=== PATIENT | male | born 1945 | race Caucasian/White ===

== ENCOUNTER 2018-04-17 13:30 | Emergency (ER) | payer MEDICARE ==
[~2018-04-17] VITALS: Ht 188 cm; Wt 77.3 kg
[2018-04-17 13:33] VITALS: BP 132/80; Ht 188 cm; Wt 77.3 kg
== END 2018-04-17 18:15 | disposition home or self-care (01) ==
LOC: D.ER 13:30
DX: R55 Syncope and collapse (principal); E86.0 Dehydration; Z86.73 Personal history of transient ischemic attack (TIA), and cerebral infarction without residual deficits; G30.9 Alzheimer's disease, unspecified; F02.80 Dementia in other diseases classified elsewhere, unspecified severity, without behavioral disturbance, psychotic disturbance, mood disturbance, and anxiety

== ENCOUNTER 2019-05-27 13:52 | Emergency (ER) | payer MEDICARE, OTHER ==
[~2019-05-27] VITALS: Ht 188 cm; Wt 70.5 kg
[2019-05-27 13:59] VITALS: Ht 188 cm; Wt 70.5 kg
[2019-05-27 14:20] LABS: BASOPHILS 0.3 % (0-2); EOSINOPHILS 2.4 % (0-7); HEMATOCRIT 43.6 % (42.0-54.0); HEMOGLOBIN 14.2 g/dL (13.5-17.5); IMMATURE GRANULOCYTES 0.4 % (0-5); LYMPHOCYTES 10.2 % (15-50); MCH 26.8 pg (26.0-34.0); MCHC 32.6 g/dL (31.0-37.0); MCV 82.3 fL (80.0-100.0); MEAN PLATELET VOLUME 9.2 fL (7.4-10.4); MONOCYTES 9.9 % (2-11); NEUTROPHILS 76.8 % (40-80); PLATELET COUNT 197 10x3/uL (130-400); RDW 15.4 % (11.5-14.5); WBC 7.1 10x3/uL (4.8-10.8)
[2019-05-27 14:39] LABS: ANION GAP 9.8 mmol/L (8-16); CALCIUM 8.4 mg/dL (8.5-10.1); CARBON DIOXIDE 28.3 mmol/L (21.0-32.0); CREATININE - SERUM 1.3 mg/dL (0.6-1.3); POTASSIUM - SERUM 4.1 mmol/L (3.5-5.1)
[2019-05-27 14:45] LABS: BILIRUBIN - TOTAL 0.69 mg/dL (0.2-1.3); PROTEIN - SERUM 7.4 g/dL (6.4-8.2)
[2019-05-27 15:51] VITALS: BP 132/76
== END 2019-05-27 15:53 | disposition home or self-care (01) ==
LOC: D.ER 13:52
PROVIDERS: Emergency Medicine
DX: R55 Syncope and collapse (principal); I71.9 Aortic aneurysm of unspecified site, without rupture; F17.210 Nicotine dependence, cigarettes, uncomplicated; Z86.73 Personal history of transient ischemic attack (TIA), and cerebral infarction without residual deficits

== ENCOUNTER 2020-12-07 08:04 | Inpatient (IN) | payer MEDICARE, OTHER ==
[~2020-12-07] VITALS: Ht 188 cm; Wt 56.1 kg
[2020-12-07 08:47] LABS: BASOPHILS 0.6 % (0-2); EOSINOPHILS 0.9 % (0-7); HEMATOCRIT 39.5 % (42.0-54.0); HEMOGLOBIN 13.1 g/dL (13.5-17.5); MCH 27.3 pg (26.0-34.0); MCHC 33.1 g/dL (31.0-37.0); MCV 82.3 fL (80.0-100.0); MEAN PLATELET VOLUME 6.9 fL (7.4-10.4); MONOCYTES 14.7 % (2-11); NEUTROPHILS 75.8 % (40-80); PLATELET COUNT 214 10x3/uL (130-400); RDW 14.3 % (11.5-14.5); WBC 11.9 10x3/uL (4.8-10.8)
[2020-12-07 09:11] LABS: ALBUMIN 3.2 g/dL (3.4-5.0); ALKALINE PHOSPHATASE 72 U/L (30-120); ALT (SGPT) 11 U/L (10-68); BILIRUBIN - TOTAL 1.34 mg/dL (0.2-1.3); CALC OSMOLALITY 273 mosm/kg (275-300); CALCIUM 8.3 mg/dL (8.5-10.1); CARBON DIOXIDE 22.8 mmol/L (21.0-32.0); CHLORIDE - SERUM 101 mmol/L (98-107); CREATININE - SERUM 1.2 mg/dL (0.6-1.3); GLUCOSE 114 mg/dL (74-106); LIPASE 68 U/L (73-393); POTASSIUM - SERUM 4.2 mmol/L (3.5-5.1); PRO BNP 187 pg/mL (0-125); PROTEIN - SERUM 6.7 g/dL (6.4-8.2); SODIUM 135 mmol/L (136-145); THYROID STIMULATING HORMONE 0.39 uIU/mL (0.36-3.74); TROPONIN-I < 0.017 ng/mL (0.000-0.060); UREA NITROGEN 20 mg/dL (7-18); eGFR NON AFRICAN AMERICAN 63 mL/min (90-120)
[2020-12-07 09:52] LABS: UDS - AMPHET NEGATIVE QUAL (NEGATIVE); UDS - BARB NEGATIVE QUAL (NEGATIVE); UDS - BENZO NEGATIVE QUAL (NEGATIVE); UDS - COCAINE NEGATIVE QUAL (NEGATIVE); UDS - OPIATE NEGATIVE QUAL (NEGATIVE); UDS - PCP NEGATIVE QUAL (NEGATIVE); UDS - THC NEGATIVE QUAL (NEGATIVE)
[2020-12-07 09:59] LABS: SARS-CoV-2 ANTIGEN NEGATIVE- SARS-COV-2 (NEGATIVE)
[2020-12-07 10:12] LABS: BILIRUBIN NEGATIVE (NEGATIVE); KETONE NEGATIVE (NEGATIVE); NITRITE NEGATIVE (NEGATIVE); UROBILINOGEN NORMAL mg/dL (< 2)
[2020-12-07 10:13] LABS: BACTERIA FEW HPF (NONE SEEN); SQUAMOUS EPITHELIAL OCC HPF (0-4); WHITE CELLS - URINE OCC HPF (0-1)
--- NOTE | 2020-12-07 11:45 | NUR ---
PATIENT ADMITTED TO [facility] FOR AMS. PATIENT IS REFUSING CARE AND IS AGGRESSIVE WITH PER REPORT. PATIENT CHASED AROUND THE HOME WITH A LAMP. PATIENT WAS BROUGHT TO [facility] FOR TREATMENT. PATIENT'S PRIMARY CARE PHYSICIAN IS LATRICE PIERSON. PATIENT'S PHARMACY IS [facility]. PATIENT IS ALLERGIC TO PENICILLIN. PATIENT TAKES NO MEDICATIONS AT THIS TIME PER REPORT. PATIENT IS A CURRENT SMOKER. PATIENT IS ON A REGULAR DIET. PATIENT IS AMBULATORY HOWEVER, UNSTEADY AT THIS TIME. PATIENT'S REPORTS "PATIENT DID FALL ONTO THE FLOOR AT HOME THIS MORNING, PATIENT BECOME AGGRESSIVE WITH WITH ASSISTANCE. PT HAS DENTURES BUT REFUSES TO WEAR THEM AT HOME. PT DID NOT BRING DENTURES TO HOSPITAL AT THIS TIME. PATIENT HAD A CATARACT SURGERY AROUND 18 YEARS AGO AND A STROKE AROUND 5 YEARS AGO PER 'S REPORT. PATIENT WAS DIAGNOSED WITH DEMENTIA 10 YEARS AGO PER REPORT. VERBAL CONSENT RECEIVED FROM DAMION SENA. CONTACT NUMBER AND CELL NUMBER IS CELL. PATIENT HAD A NEGATIVE COVID ANTIGEN SWAB IN ER. EKG COMPLETED IN ER AND PLACED IN PATIENT'S CHART. UA COLLECTED AND CULTURE ORDERED.
[2020-12-07 18:44] VITALS: BP 106/60
--- NOTE | 2020-12-07 19:15 | NUR ---
REPORTED CALL TO CECIL EDGAR. PT TRANSFERRED TO ICU RM [id number]. NO S/SX OF DISTRESS NOTED.
[2020-12-07 20:00] VITALS: BP 125/65
--- NOTE | 2020-12-07 23:50 | NUR ---
B)RECEIVED PATIENT SITTING OUTSIDE THE NURSE'S STATION. ORIENTED X0. COULD NOT TELL NURSE HIS NAME. DOES NOT FOLLOW VERBAL INSTRUCTION. WANDERS AROUND UNIT. PT SWUNG AT T WHEN ATTEMPTING TO REDIRECT TO HIS ROOM. WLAKS AROUND HOLDING HIMSELF AND WHEN ASKS IF HE NEEDS TO PEE? PATIENT RELATES "YES" HOWEVER WHEN HE GETS TO THE BATHROOM HE LOOKS AT THE TOILET AND TURNS AROUND. WHEN ASKED IF HE NEEDS TO USE TH BATHROOM HE RELATES "NO." I)REORIENT NEEDED. REDIRECT FOR AGGRESSIVE GESTURES. R)POOR REORIENTATION AND REDIRECTION DUE TO IMPAIRED ABILITY TO COMPREHEND PROCESS AND REATIN INFORMATION. P)CONTINUE POC AND PROVIDE SAFE ENVIRONMENT.
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
[2020-12-08 06:07] LABS: BASOPHILS 0.4 % (0-2); EOSINOPHILS 1.3 % (0-7); HEMATOCRIT 38.1 % (42.0-54.0); HEMOGLOBIN 12.7 g/dL (13.5-17.5); LYMPHOCYTES 7.8 % (15-50); MCH 27.4 pg (26.0-34.0); MCHC 33.4 g/dL (31.0-37.0); MCV 82.1 fL (80.0-100.0); MEAN PLATELET VOLUME 7.9 fL (7.4-10.4); MONOCYTES 14.2 % (2-11); NEUTROPHILS 76.3 % (40-80); PLATELET COUNT 209 10x3/uL (130-400); RBC 4.64 10x6/uL (4.20-6.10); RDW 14.2 % (11.5-14.5)
[2020-12-08 06:54] LABS: ANION GAP 12.2 mmol/L (8-16); BILIRUBIN - TOTAL 1.28 mg/dL (0.2-1.3); CALCIUM 8.8 mg/dL (8.5-10.1); CARBON DIOXIDE 26.6 mmol/L (21.0-32.0); CHOL - HDL RATIO 2.6 ratio (2.3-4.9); CREATININE - SERUM 1.4 mg/dL (0.6-1.3); LDL-HDL RATIO 1.4 ratio (1.5-3.5); POTASSIUM - SERUM 3.8 mmol/L (3.5-5.1); PROTEIN - SERUM 6.9 g/dL (6.4-8.2); THYROID STIMULATING HORMONE 0.41 uIU/mL (0.36-3.74)
[2020-12-08 08:19] VITALS: BP 105/53
--- NOTE | 2020-12-08 11:11 | NUR ---
Patients spouse calls requesting information, passcode verifided. This nurse provided requested information at her request. She thanked this nurse and stated thank you to staff for caring for him.
[2020-12-08 15:46] VITALS: Ht 188 cm; Wt 56.1 kg
--- NOTE | 2020-12-08 17:18 | NUR ---
pt sitting on couch at this time with eyes closed. calm and cooperative at this time. pt does not respond to pt name. confused. ambulates. compliant with meds, vitals and assessments. Incontient at times. pt will urinate in any place. nicotine patch in place. pt requires slow appoprach. no combative behavior noted. pt has frequency. requires constant redirection. will cont plan of care.
[2020-12-08] MEDS ORDERED: BACTRIM DS TAB1 EAC1 (18:52)
--- NOTE | 2020-12-08 18:55 | NUR ---
nurse called [facility] on [address] and obtained a mediation list and entered into the computer.
--- NOTE | 2020-12-08 19:32 | NUR ---
nurse spoke with pt Mrs. Hartman. passcode given. she wanted to see how he was doing, gave her some information about how he was doing and how to approach the phone situation. she wanted to know how he was doing and how she could do visitation. nurse stated to call before visitation. she completely verbalizied understanding to situation. she thanked nurse.
[2020-12-08 20:00] VITALS: BP 129/85
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
[2020-12-09 09:17] VITALS: BP 108/51
--- NOTE | 2020-12-09 13:20 | NUR ---
PT CALLED TO CHECK ON PT. PASSCODE GIVEN. SHE STATED SHE WOULD BE VISITING THIS SHIFT. NURSE EDUCATED ON RULES AND REGUALTIONS. SHE VOICED UNDERSTANDING.
--- NOTE | 2020-12-09 15:45 | NUR ---
PT HERE AT THIS TIME. TOLERATED VERY WELL. ASKED ABOUT HOW LONG PT WOULD BE STAYING. NURSE VERBALIZIED THAT A TYPICAL STAY WAS 7 TO 14 DAYS TO ALLOW MEDICATIONS ADJUSTMENTS, MONITOR BEHAVIORS, MAKE SURE PT ATE AND DRANK WELL. SHE VOICED UNDERSTANDING.
--- NOTE | 2020-12-09 18:41 | NUR ---
pt sitting in chair sitting among other pts. calm and cooperative with staff and peers. pt is alert to name being called. disoriented to self, place, time and situation only. pt is compliant with po meds, vitals and assessments. apporach pt slowly to avoid pt reacting aggressivly. pt does well. pt had a visitor this shift and visitation went very well. pt ambulates. pt has motions if he needs toileting. unable to make needs known. will cont plan of care.
--- NOTE | 2020-12-10 04:42 | NUR ---
B)RECEIVED PATIENT WANDERING THE UNIT. CONFUSED AND DISORIENTED. COULD NOT TELL STAFF HIS NAME. WILL LOOK AT YOU SMILE NOD HIS HEAD IF HE IS ANSWERING YES. INTRUSSIVE AND WILL TOUCH OTHERS BELONGINGS, PUSH THEIR WHEELCHAIR OR JUST STAND BESIDE THEM. AGITATES EASILY WITH VERBAL INSTRUCTION RELATED TO IMPAIRED ABILITY TO COMPREHEND AND PROCESS INFORMATION. TRIES TO OPEN THE DOORS AND WILL FOLLOW OTHERS TO THEIR ROOM. I)ADMINISTER MEDS AND MONITOR COMPLIANCE. REORIENT NEEDED. R)MED COMPLIANT. POOR REORIENTATION DUE TO IMPAIRED ABILITY TO CONPREHEND AND RETAIN INFORMATION. P)CONTINUE POC AND PROVIDE SAFE ENVIRONMENT.
--- NOTE | 2020-12-10 10:10 | NUR ---
PT [place] CALLED TO CHECK ON PT AFTER VISITATION. PASSCODE GIVEN. PT DID VERY WELL AFTER VISITATION. NO AGGRESSION NOTED IN THE EVENING AND DURING THE NIGHT. PT WAS CALM AFTER DINNER. PT DID NOT DO VERY WELL IN THIS MORNING. PT WAS SLEEPING AND STAFF WOKE UP FOR BREAKFAST AND PT DID NOT WANT TO GET UP. STAFF LET PT STAY IN BED FOR A BIT LONGER. BED ALARM SOUNDED AND PT WAS IN ROOM WALKING. STAFF WENT TO REDIRECT PT AND HE DID BECOME AGITATED WITH REDIRECTION. PT DOES NOT UNDERSTAND REDIRECTION. GESTURES ARE USED TO REDIRECT. PT DOES NOT UNDERSTAND. PT DID NOT REQUIRE MEDICATIONS BUT WAS AGGRESSIVE. SHE VERBALIZIED UNDERSTANDING. SHE STATED VISITATION WENT WELL AND EVERYONE WAS SO SWEET AND HELPFUL. I KNOW HE IS BEING TAKEN CARE OF AND IM GOOD WITH THAT. SHE STATED SHE WOULD LOVE TO KNOW THE NAME OF EVERYONE SO SHE COULD THANK EVERYONE FOR THE HELP. NURSE THANKED HER AND VERBALIZIED UNDERSTANDING.
--- NOTE | 2020-12-10 14:03 | NUR ---
PT SITTING IN CHAIR NEAR PEERS. PT IS CALM AT THIS TIME. PT IS VERY CONFUSED. CAN NOT TELL STAFF NAME. WILL TURN WHEN CALLED. DOES NOT UNDERSTAND REDIRECTION. CONT TO ATTEMPT REDIRECTION WITH GESTURES. AT TIMES CAN BE RESISTANT TO REDIRECTION. COMPLIANT WITH CRUSHED MEDS, VITALS AND ASSESSMENTS. AMBULATES WITH SOMEWHAT UNSTEADY GAIT. PERICARE AND TOILETING SCHEDULE Q 2 HR AND PRN. WILL CONT PLAN OF CARE.
[2020-12-10 20:08] VITALS: BP 126/66
--- NOTE | 2020-12-10 21:09 | NUR ---
PT IS ALERT BUT NOT ORIENTED TO SELF. RECEIVED IN HIS ROOM IN BED RESTING WITH EYES CLOSED. AROUSES TO PHYSICAL TOUCH. VERY CONFUSED. CALM. NO AGGRESSION NOTED AT THIS TIME. REQUIRES CONSTANT REDIRECTION. COMPLIANT WITH ALL MEDICATIONS. MONITOR FOR SAFETY.
[2020-12-11 07:35] VITALS: BP 142/61
--- NOTE | 2020-12-11 15:28 | NUR ---
WHEN ASKED HIS NAME DOES NOT RESPOND.VERY CONFUSED.DIFFICULT TO REDIRECT AT TIMES.THIS NURSE IS NOT SURE THAT HE UNDERSTANDS WHAT IS BEING SAID TO HIM.REFUSED AM MEDS FEOM THIS NURSE BUT LATER TOOK THEM FROM ANOTHER NURSE.MEDS WERE CRUSHED AND IN PUDDING.AMBULATES ABOUT UNIT WITH FAIRLY STEADY GAIT.NO AGGRESSION OBSERVED.WILL CONTINUE WITH CURRENT PLAN OF CARE,MONITOR FOR CHANGES AND SAFETY.
--- NOTE | 2020-12-11 19:15 | NUR ---
PT IS NOT ORIENTED AT ALL. OBSERVED PACING AND WANDERING INTO OTHER PT ROOMS. RESISTANT TO REDIRECTION. COMPLIANT WITH MEDICATIONS. VERY UNSTEADY GAIT. CANNOT FOLLOW SIMPLE COMMANDS. AGITATED AT TIMES WITH STAFF. MONITOR FOR SAFETY.
--- NOTE | 2020-12-11 19:36 | NUR ---
PT IS OBSERVED LAYING IN ANOTHER PT BED. REFUSES TO GET OUT OF THE BED. SLAPPING AND SWINGING ARMS AT STAFF WHEN ATTEMPTING TO REDIRECT. THREATENING STAFF. FIST BALLED AND STATES "THIS ASSHOLE!" ADMINISTERED PRN ATIVAN 0.5MG AND HALDOL 2 MG IM PER ORDERS FOR UNSAFE PSYCHOTIC BEHAVIOR AND ANXIETY. ASSISTED PT TO HIS OWN BED AND COVERED HIM WITH A BLANKET. PT ADJUSTED PILLOW AND CLOSED EYES. MONITOR FOR SAFETY.
--- NOTE | 2020-12-11 20:15 | NUR ---
PT RESTING IN BED. STILL COMBATIVE WITH STAFF THEY ATTEMPT TO GET VIALS. RESISTANT TO ANY REDIRECTION. PT COVERED HEAD WITH BLANKET STAFF LEFT THE ROOM. MONITOR FOR SAFETY.
[2020-12-11 21:08] VITALS: BP 130/72
[2020-12-12 07:30] VITALS: BP 131/67
--- NOTE | 2020-12-12 08:30 | NUR ---
[facility] RESTING IN BED WITH EYES CLOSED. CALM AND COOPERATIVE WITH CARE AND ASSESSMENT. VERY CONFUSED. WANDERS AROUND UNIT. NO AGGRESSIVE BEHAVIORS NOTED. REDIRECT AND REORIENT NEEDED. REFUSING TO EAT BREAKFAST AT THIS TIME. CONTINUE PLAN OF CARE.
--- NOTE | 2020-12-12 14:53 | NUR ---
Rec'd patient in bed this am. He is not verbal but will smile at this nurse. he will smile at the other patients and often wink. He is very confused. He has been med compliant this morning. He will easily become combative if he feels pressure with commands. His spouse, after passcode verified, called this am asking about his current physical and mental functioning today. She praised the staff with all the care they perform. He sat in group this am but did not or could not participate.
--- NOTE | 2020-12-12 20:00 | NUR ---
RECEIVED IN DINING AREA. WALKING ABOUT. CONFUSED. DIFFICULT TO REDIRECT. CALM AND COOPERATIVE WITH CARE AND ASSESSMENT. NO SIGNS OF AGGRESSION. REDIRECT AND REORIENT NEEDED. IN BEDROOM. AT THIS TIME. RESTLESS. CONTINUE PLAN OF CARE.
[2020-12-12 20:20] VITALS: BP 134/70
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
--- NOTE | 2020-12-12 21:50 | NUR ---
PT RESTLESS AND CONFUSED. PACING IN HIS ROOM. UNABLE TO FOLLOW SIMPLE COMANDS. MISINTERPRETS STAFF DIRECTIONS. MONITOR FOR SAFETY.
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
--- NOTE | 2020-12-13 01:06 | NUR ---
PT IN [facility] IN THE HALLWAY OUTSIDE THE NURSES STATION FOR SAFETY. RESTLESS AND ATTEMPTS TO GET UP. REQUIRES CONSTANT REDIRECTION, UNABLE TO FOLLOW COMMANDS. PULLING CHAIR ALARM OUT FROM UNDER HIM.
[2020-12-13 08:00] VITALS: BP 155/67
--- NOTE | 2020-12-13 10:44 | NUR ---
Nutrition Follow-up: Diet: Regular PO intake: ~56% average x last 9 meals Last BM: 12/11/20 Wt: 124# (12/12/20)-actual; Admit Wt: 145# (12/07/20)- stated BMI is actually 15.9, now that we have an actual weight Meds noted: nasrin CONDON No new chem labs Recommend continue current diet and appetite stimulant. Will continue to honor food preferences with selective menus. Will add oral nutrition supplement with meals. RD will follow-up 12/15/20.
--- NOTE | 2020-12-13 16:51 | NUR ---
CONFUSED AND DISORIENTED.HAS SLEPT MOST OF THIS SHIFT BUT DID AROUSE FOR MEDS.MEDS CRUSHED AND GIVEN IN APPLESAUCE.IS INCONTINENT AND REQUIRES ASSIST OF TWO TO TRANSFER,WILL NOT STAND WHEN ASK TOO,BUT IS OFTEN OBSERVED TRYING TO GET OUT OF CHAIR WITHOUT ASSIST.WILL CONTINUE WITH CURRENT PLAN OF CARE,MONITOR FOR CHANGES AND SAFETY.
[2020-12-13 19:08] LABS: BILIRUBIN NEGATIVE (NEGATIVE); KETONE MODERATE mg/dL (NEGATIVE); NITRITE NEGATIVE (NEGATIVE); UROBILINOGEN NORMAL mg/dL (< 2)
[2020-12-13 19:10] LABS: WHITE CELLS - URINE OCC HPF (0-1)
[2020-12-13 20:00] VITALS: BP 131/78
--- NOTE | 2020-12-14 04:10 | NUR ---
B)RECEIVED PATIENT SITTING OUTSIDE THE NURSE'S STATION. ORIENTED TO SELF ONLY. DOES NOT CARRY ON A FULL CONVERSATION. WILL NOD HEAD AND SMILE. ATTEMPTS TO GET UP UNASSISTED HOWEVER IS VERY UNSTEADY. FREQUENT TRIPS TO THE BATHROOM. I)ADMINISTER MEDS AND MONITOR COMPLIANCE. REORIENT NEEDED. R)MED COMPLIANT. POOR REORIENTATION DUE TO IMPAIRED ABILITY TO COMPREHEND, PROCESS AND RETAIN INFORMATION. P)CONTINUE POC AND PROVIDE SAFE ENVIRONMENT.
[2020-12-14 08:02] VITALS: BP 121/72
--- NOTE | 2020-12-14 18:52 | NUR ---
ORIENTED TO SELF ONLY.COMPLIANT WITH STAFF AND MEDS.KEEPS TO SELF MOSTLY BUT DOES SOCIALIZE SOME WITH PEERS.WILL CONTINUE WITH CURRENT PLAN OF CARE,MONITOR FOR CHANGES AND SAFETY.
[2020-12-14 20:15] VITALS: BP 125/64
--- NOTE | 2020-12-15 02:18 | NUR ---
B) Patient is alert and oriented to self, calm and cooperative, confused and restless at times, I) Administered scheduled medications as ordered, redirected as needed, R) Medication compliant, poor abilty to retain and process information, P) Continue plan of care.
--- NOTE | 2020-12-15 15:22 | PN ---
PATIENT:CHRISTIAN SENA MEDICAL RECORD: [id number] LOCATION:[facility] ADMISSION DATE: 12/07/20 PROGRESS NOTE DATE OF SERVICE: 12/14/2020 SUBJECTIVE: The patient's case was discussed with staff. He has no new complaint. OBJECTIVE: The patient is only oriented to person. He is cooperative, but clearly impaired severely. ASSESSMENT: Dementia. PLAN: The patient's medications have been reviewed. His behaviors have improved. He will have the Namenda increased slightly. TRANSINT:[id number] Voice Confirmation ID: [id number] DOCUMENT ID: [id number] BELLA CUNHA MD at 1522 CC: [id number] DICTATION DATE: 12/14/20 162 IN FILE OPERATOR: 12/15/20 0336 ADM IN [facility] [address] [place] [address]
--- NOTE | 2020-12-15 15:22 | PN ---
PATIENT:CHRISTIAN SENA MEDICAL RECORD: [id number] LOCATION:[facility] ADMISSION DATE: 12/07/20 PROGRESS NOTE DATE OF SERVICE: 12/13/2020 SUBJECTIVE: The patient's case was discussed with staff. He has no new complaint. OBJECTIVE: The patient has been aggressive and difficult to redirect. He is not following commands appropriately. ASSESSMENT: Dementia. PLAN: The patient will be treated with Geodon at a dose of 20 mg twice daily. Geodon has been used to address his aggressive behaviors. TRANSINT:[id number] Voice Confirmation ID: [id number] DOCUMENT ID: [id number] BELLA CUNHA MD at 1522 CC: [id number] DICTATION DATE: 12/13/20 1517 SHIP SCALER: 12/15/20 0045 ADM IN [facility] [address] [place] [address]
--- NOTE | 2020-12-15 16:11 | NUR ---
Nutrition Re-Assessment Diet: Regular + Ensure TID PO intake: ~42% average x last 9 meals Last BM: 12/11/20 Wt: 124# (12/12/20)- wheelchair; Admit Wt: 145# (12/07/20)- stated weight *NOTE BMI is actually 15.9, now that we have an actual weight Meds noted: [facility] ES Labs reviewed Estimated nutrition needs: 2150-2600cal (25-30kcal/kg IBW), 69-86gms protein (0.8-1gms/kg), 1650-1950mL fluid (or per MD) Nutrition diagnosis: -Inadequate energy intake r/t inadequate oral intake AEB PO intake <65%. -Underweight r/t inadequate PO intake AEB BMI 15.9. Nutrition goals: -PO intake =/>75% meals -Meet fluid needs -Weight trend up ~1-2#/week until BMI WNL or IBW reached Recommendations/Interventions: -Recommend continue regular diet. Will continue to honor food preferences. Recommend encouraged PO intake at meal times. -Continue Ensure TID. -Recommend continue appetite stimulant as medically feasible. -RD will follow-up within 7 days.
--- NOTE | 2020-12-15 17:23 | NUR ---
Rec'd patient this am ambulatory in hallway. His gait is slightly unsteady and very slow. He is med compliant and takes his meds whole without difficulty. He is a/o to person. He is very confused. He becomes upset very easily about wanting to find a person named "Funmilayo". He thinks she was here either "this morning or yesterday". He is difficult to redirect. He has shown aggression with "wanting to go home" "looking for Funmilayo".He is very active and is pacing about the day room and dining room most of the day. He converses with some of the patients and staff. He did not participate in any activity or group.
[2020-12-15 20:00] VITALS: BP 131/54
--- NOTE | 2020-12-15 21:42 | NUR ---
PT IS ALERT AND ORIENTED TO SELF ONLY. POOR INSIGHT INTO HIS SITUATION. UNABLE TO FOLLOW SIMPLE COMMANDS FROM STAFF BUT OBSERVED FOLLOWING ORDERS FROM ANOTHER PT. OBSERVED PACING, EXIT SEEKING, AND FOLLOWING OTHER PTS AROUND. COMPLIANT WITH ALL MEDICATIONS. RESISTANT TO REDIRECTION. MONITOR FOR SAFETY.
--- NOTE | 2020-12-16 11:52 | NUR ---
ALERT, CALM, COOPERATIVE, PLEASANT. MEDS ADMIN PER ORDERS WITH COMPLETE MED COMPLIANCE NOTED. NO SPITTING MEDS NOTED. NO ADVERSE REACTION TO MEDS. CONTINUE PLAN OF CARE.
[2020-12-16 11:58] VITALS: BP 114/68
--- NOTE | 2020-12-16 15:24 | PN ---
PATIENT:CHRISTIAN SENA MEDICAL RECORD: [id number] LOCATION:[facility] ADMISSION DATE: 12/07/20 PROGRESS NOTE DATE OF SERVICE: 12/15/2020 SUBJECTIVE: The patient's case was discussed with staff. He has no new complaint. OBJECTIVE: The patient is in good behavioral control. He has not been disruptive. His memory is severely impaired and in fact he is oriented to nothing. He cannot remember his name, but when asked if his name is Christian, he excitedly says yes. Obviously, he is in need of 24 hour a day supervision. He will be monitored for clinical changes. His long-term prognosis is guarded. TRANSINT:[id number] Voice Confirmation ID: [id number] DOCUMENT ID: [id number] BELLA CUNHA MD at 1524 CC: [id number] DICTATION DATE: 12/15/20 1653 HANDHOLE MACHINE OPERATOR: 12/16/20 0024 ADM IN [facility] [address] [place] [id number]
[2020-12-16 20:00] VITALS: BP 151/85
--- NOTE | 2020-12-16 21:47 | NUR ---
RECEIVED PATIENT IN DAYROOM, VERY CONFUSED, SITTING QUIETLY, MEDS CRUSHED AND GIVEN WITH APPLESAUCE, NO AGGRESSION NOTED AT THIS TIME. WILL FOLLOW POC
[2020-12-17 11:32] VITALS: BP 117/51
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
[2020-12-17 20:00] VITALS: BP 121/46
--- NOTE | 2020-12-17 23:32 | NUR ---
RECEIVED PATIENT IN DAYROOM, HE IS VERY CONFUSED, HE URINATES IN THE GARBAGE CANS. COMPLIANT WITH MEDS HOWEVER, HE IS SMILING WHEN YOU TALK TO HIM. WILL FOLLOW POC
[2020-12-18 10:36] VITALS: BP 130/66
--- NOTE | 2020-12-18 16:48 | NUR ---
PT HERE TO VISIT AT THIS TIME. TEMP TAKEN. SHE STATED "HE WAS DOING MUCH BETTER AND SHE WAS SO HAPPY EVERYONE WAS NICE HERE AND SHE HAD TO GET ALL OF EVERYONES NAME."
--- NOTE | 2020-12-18 17:10 | NUR ---
PT PACING AT THIS TIME. PT IS CALM AND COOPERATIVE. CAN BE RESISTANT TO REDIRECTION. CONFUSED. ALERT TO SELF ONLY. COMPLIANT WITH MEDS, VITALS AND ASSESSMENTS. CAN NOT MAKE NEEDS KNOWN. PT DOES NOT UNDERSTAND NAME WHEN CALLED. DIFFICULT TO REDIRECT DUE TO LOW COGNITIVE FUNCTIONING. NO AGGRESSIVE BEHAVIOR NOTED THIS SHIFT. PACES. BED ALARM IN PLACE AND ACTIVE. WILL CONT PLAN OF CARE.
[2020-12-18 20:00] VITALS: BP 104/66
--- NOTE | 2020-12-19 01:33 | NUR ---
RECEIVED PATIENT ON UNIT, HE WAS WANDERING AIMLESSLY, HE IS EXTREMELY CONFUSED AND HAS TO BE REDIRECTED, HE BECOMES AGGRESSIVE WITH REDIRECTION. MEDS ARE CRUSHED AND GIVEN WITH APPLESAUCE. WILL FOLLOW POC
[2020-12-19 07:30] VITALS: BP 106/65
--- NOTE | 2020-12-19 17:52 | NUR ---
RECEIVED IN HALLWAY OUTSIDE OF NURSES STATION. WANDERING UNIT. VERY CONFUSED. UNABLE TO FOLLOW DIRECTIONS. AGGRESSIVE WITH MHT IN SHOWER AFTER HE HAD BM IN FLOOR AND PLAYED IN IT. REDIRECT AND REORIENT NEEDED. EATING DINNER AT THIS TIME. CONTINUE PLAN OF CARE.
[2020-12-19 23:36] VITALS: BP 160/62
--- NOTE | 2020-12-19 23:42 | NUR ---
RECEIVED IN HALLWAY. RESTLESS. PACING. COMBATIVE WITH CARE AND REDIRECTION. REFUSED TEMP. VERY CONFUSED. ORIENTED TO SELF AT BEST. REDIRECT AND REORIENT NEEDED. RESTING IN BED WITH EYES CLOSED AT THIS TIME. CONTINUE PLAN OF CARE.
[2020-12-20 07:30] VITALS: BP 128/59
--- NOTE | 2020-12-20 12:15 | NUR ---
RECEIVED IN HALLWAY OUTSIDE OF NURSES STATION. WANDERING AROUND. VERY CONFUSED. COOPERATIVE WITH CARE AND ASSESSMENT. PATIENT WAS SEXUALLY INAPPROPRIATE WITH OTHER NURSE TODAY. BECOMES AGITATED WITH REDIRECTION. REDIRECT AND REORIENT NEEDED. EATING LUNCH AT THIS TIME. CONTINUE PLAN OF CARE.
--- NOTE | 2020-12-20 20:05 | NUR ---
RECEIVED IN HALLWAY. PACING UNIT. VERY RESTLESS. DIFFICULT TO REDIRECT AT TIMES. CALM AND COOPERATIVE WITH CARE AND AND ASSESSMENT. NO SIGNS OF AGGRESSION. REDIRECT AND REORIENT NEEDED. SITTING IN HIS ROOM AT THIS TIME. CONTINUE PLAN OF CARE.
[2020-12-20 23:05] VITALS: BP 148/74
[2020-12-21 08:00] VITALS: BP 107/56
--- NOTE | 2020-12-21 10:48 | PN ---
PATIENT:CHRISTIAN SENA MEDICAL RECORD: [id number] LOCATION:[facility] ADMISSION DATE: 12/07/20 PROGRESS NOTE DATE OF SERVICE: 12/16/2020 SUBJECTIVE: The patient's case was discussed with staff. He has no new complaint. OBJECTIVE: The patient is oriented to person today. His mood is flat. His affect is constricted. Thought processes are circumstantial. Memory, concentration and abstraction abilities are impaired. He has not been aggressive. ASSESSMENT: Dementia. PLAN: Current medicines have been reviewed and will be maintained. Long-term prognosis is guarded. TRANSINT:[id number] Voice Confirmation ID: [id number] DOCUMENT ID: [id number] BELLA CUNHA MD at 1048 CC: [id number] DICTATION DATE: 12/16/20 1543 CRYSTAL CUTTER: 12/16/20 1701 ADM IN [facility] [address] [place] [address]
--- NOTE | 2020-12-21 14:18 | NUR ---
Received patient in the hallway by the nurses station. Patient paces the unit during this shift. Patient is very restless at this time. Patient is difficult to redirect at times. Assessment completed. Prescribed medications provided as ordered. Med compliant. Redirect and reorient as needed. Sexually inappropriate behaviors reported per mental health tech. Fall precautions in place for safety we will continue plan of care.
--- NOTE | 2020-12-21 16:01 | NUR ---
aniline press worker spoke to patient's Khushboo to discuss discharge plans for tomorrow. Patient will be referred to [facility] [place] [facility] for [facility] and home. Patient will also be referred to [facility] to receive medical treatment and home. aniline press worker also did a referral to [facility]. Khushboo expressed gratitude for services. No other needs were voiced at this time. Patient will be picked up at 11 tomorrow December 22.
[2020-12-21] MEDS ORDERED: NAMENDA5 MG PO (17:00)
[2020-12-21] MEDS ORDERED: ZOLOFT50 MG PO (17:00)
[2020-12-21] MEDS ORDERED: VITAMIN B-121000 MCG PO (17:01)
[2020-12-21] MEDS ORDERED: GEODON20 MG PO (17:01)
[2020-12-21] MEDS ORDERED: VITAMIN D PO (17:01)
[2020-12-21] MEDS ORDERED: Megace ES [CHEMO] PO (17:01)
--- NOTE | 2020-12-21 21:30 | NUR ---
RECEIVED IN HALLWAY. RESTLESS. PACING UNIT. CALM AND COOPERATIVE WITH CARE AND ASSESSMENT. NO SIGNS OF AGGRESSION. REDIRECT AND REORIENT NEEDED. IN BEDROOM WITH MHT AT THIS TIME. CONTINUE PLAN OF CARE.
[2020-12-21 21:41] VITALS: BP 140/65
[2020-12-22 09:32] VITALS: BP 115/77
--- NOTE | 2020-12-22 10:20 | NUR ---
PT SITTING AT TABLE AT THIS TIME. CALM AND COOPERATIVE WITH STAFF. COMPLIANT WITH MEDS, VITALS AND ASSESSMENTS. CONFUSION NOTED. ALERT TO SELF ONLY. AMBULATES FREQUENTLY. REDIRECT AND REORIENT. CAN NOT MAKE NEEDS KNOWN. NO AGGRESSIVE BEHAVIORS NOTED. INCONTIENT AT TIMES. WILL CONT PLAN OF CARE.
--- NOTE | 2020-12-22 10:46 | NUR ---
NURSE CALLED MEDICATIONS INTO [facility] TO [place] AT THIS TIME. ALL MEDICATIONS WERE THERE AND READY EXCEPT 2. NURSE VERBALLY CALLED IN [facility]GACE 625 MG SUSP, VIT D OTC MEDICATIONS.
--- NOTE | 2020-12-22 11:39 | NUR ---
PT D/C HOME WITH HIS AT THIS TIME. PT WAS CALM AND COOEPERATIVE WITH D/C. NURSE WENT OVER MEDICATIONS, USES, HOW TO ADMINISTER MEDICATIONS WITH [employer] [employer], HOW TO REDIRECT CALMLY AND HOW TO GET HIM TO TAKE MEDICATIONS IN DETAIL. NURSE CALLED MEDS INTO PHARMACY AND MAKE NURSE AWARE. EDUCATION IN THE D/C ENEVLOPE. HOSPICE CAME TO [facility]. ALL PAPERWORK WENT OVER WITH . ALL PAPERWORK FAXED TO CORRECT PLACES. STAFF ASSISTED PT INTO PRIVATE CAR AT THIS TIME. PT WAVED BIG AT STAFF. ALL PERSONAL BELONGINGS SENT WITH PT AT THIS TIME.
--- NOTE | 2020-12-22 12:46 | PN ---
PATIENT:CHRISTIAN SENA MEDICAL RECORD: [id number] LOCATION:[facility] ADMISSION DATE: 12/07/20 PROGRESS NOTE DATE OF SERVICE: 12/21/2020 SUBJECTIVE: The patient's case was discussed with staff. He has no new complaint. OBJECTIVE: The patient is in good behavioral control with poor insight about his situation. He tolerates his medicines well. ASSESSMENT: Dementia. PLAN: The patient is severely impaired cognitively and requires a great deal of supervision. His wants to take him home and try to manage, which I think is beyond her ability, but she is insistent. 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
--- NOTE | 2020-12-23 15:14 | DS ---
PATIENT:CHRISTIAN SENA :47 MEDICAL RECORD: [id number] DISCHARGE SUMMARY ADMISSION DATE: 12/07/20 DISCHARGE DATE: 12/22/20 IDENTIFYING DATA: The patient is 75 years old and he was admitted to the hospital on a voluntary basis. CHIEF COMPLAINT: Aggression. HISTORY OF PRESENT ILLNESS: The patient was brought to us by EMS. His reports that he has been combative toward her and that he is afraid of him. He has an advanced dementia and has no real recollection of the circumstances that brought him here. HOSPITAL COURSE: The patient was admitted to the hospital and evaluated from both a medical, psychological, and social standpoint. He was found to have an advanced dementia and was treated with both mood stabilizing and memory enhancing medications. His long-term prognosis is guarded. He was stabilized so that he was no longer aggressive and was returned home. His was advised to place him in a penitentiary, but declined feeling that she was able to meet his needs. The patient unfortunately was requiring 24 hour a day supervision and I do not believe that she can adequately do this, but she insisted. There is also concern that his aggressive behaviors may return, but again she insists upon taking him home. Various agencies were involved to assist at home including the [facility] and a local family practice group that makes house calls. Hopefully, with the additional assistance, that will improve the chances of success at home. DISCHARGE DIAGNOSES: AXIS I: Major neurocognitive disorder of the Alzheimer's type. AXIS II: None. AXIS III: Stroke. AXIS IV: Moderate. AXIS V: Global assessment of functioning is 30. PLAN: At the time of discharge, the patient was in good behavioral control and had no evidence of acute or direct dangerousness to himself or others. Followup is to be with his primary care physician and the various home agencies that will be visiting. 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
== END 2020-12-22 11:00 | disposition home health service (06) | DRG 57 ==
LOC: D.ER 08:04 → D.EDHOLD 10:18 → D.PSYCH 10:18
PROVIDERS: Family Medicine; ADMIT Psychiatry & Neurology Psychiatry; ATTEND Psychiatry & Neurology Psychiatry
DX: G30.9 Alzheimer's disease, unspecified (principal); F02.81 Dementia in other diseases classified elsewhere, unspecified severity, with behavioral disturbance; F01.51 Vascular dementia, unspecified severity, with behavioral disturbance; I69.319 Unspecified symptoms and signs involving cognitive functions following cerebral infarction; E55.9 Vitamin D deficiency, unspecified; E53.8 Deficiency of other specified B group vitamins; Z91.83 Wandering in diseases classified elsewhere